=== PATIENT | male | born 1945 | race Caucasian/White ===

== ENCOUNTER 2025-09-11 15:46 | Emergency (ER) | payer MEDICARE, BC ==
[~2025-09-11] VITALS: Ht 180.3 cm; Wt 70.3 kg
[2025-09-11 16:21] LABS: PLATELET COUNT (AUTO) 166 K/uL (150-450); RED BLOOD CELL COUNT(AUTO) 5.33 MIL/uL (4.5-6.0); RED CELL DISTRIBUTION WIDTH 13.8 % (11.5-15.0); WHITE BLOOD COUNT (AUTO) 9.0 K/uL (4.3-11.0)
[2025-09-11 16:29] LABS: CALCIUM, SERUM 9.3 mg/dL (8.5-10.1); CREATININE 0.9 mg/dL (0.6-1.3); SODIUM SERUM 145 mmol/L (136-145); UREA NITROGEN, BLOOD 13 mg/dL (7-18)
[2025-09-11 16:35] LABS: ASPARTATE AMINOTRANSFERASE 16 U/L (15-37); TOTAL PROTEIN, SERUM 7.9 g/dL (6.4-8.2)
[2025-09-11 16:37] LABS: ALCOHOL, BLOOD < 3 mg/dL (0-10)
[2025-09-11 17:12] LABS: APPEARANCE,URINE CLEAR (CLEAR); BLOOD, URINE NEGATIVE Ery/uL (NEGATIVE); LEUKOCYTE ESTERASE ,URINE NEGATIVE (NEGATIVE); NITRITE, URINE NEGATIVE (NEGATIVE); UGLUCOSE NEGATIVE (NEGATIVE)
[2025-09-11 17:21] LABS: AMPHETAMINE, URINE NEGATIVE (NEGATIVE); BARBITURATE, URINE NEGATIVE (NEGATIVE); BENZODIAZEPINE, URINE NEGATIVE (NEGATIVE); CANNABINOID, URINE NEGATIVE (NEGATIVE); COCCAINE, URINE NEGATIVE (NEGATIVE); OPIATE, URINE NEGATIVE (NEGATIVE)
[2025-09-11 17:27] LABS: SQUAMOUS EPITHELIAL CELL,UR Moderate /HPF (None Seen)
[2025-09-11 17:29] LABS: ADD URINE CULTURE YES
[2025-09-11] MEDS ORDERED: CIPROFLOXACIN HCL 500 MG TABLET ONE (20:26)
[2025-09-11] MEDS: CIPROFLOXACIN HCL 250 MG TABLET PO ONE (20:29)
[2025-09-11 21:12] VITALS: BP 135/77; TEMP 98.2; O2SAT 99
== END 2025-09-11 21:12 | disposition home or self-care (01) ==
LOC: ER 15:55
DX: R45.851 Suicidal ideations (principal); I10 Essential (primary) hypertension; Z79.899 Other long term (current) drug therapy
CPT/HCPCS: 36415; 80048-TC; 80076-TC; 81001; 85025-TC; 87086-TC; G0480